=== PATIENT | female | born 1960 | race American Indian/Alaskan Native ===

== ENCOUNTER 2017-08-29 10:59 | Outpatient (CLI) | payer OTHER ==
[2017-08-29 11:35] LABS: Blood Urea Nitrogen 16 mg/dL (7-17)
[2017-08-29] MEDS ORDERED: NACL ONE (13:06)
--- NOTE | 2017-08-29 14:58 | Cat Scan Report ---
FINAL REPORT EXAM: CT ABDOMEN PELVIS W CON HISTORY: DIVERTICULITIS,LLQ PAIN,MELENA TECHNIQUE: CT examination of the ABDOMEN after IV contrast CT examination of the PELVIS after IV contrast PRIORS: None. FINDINGS: Nonspecific slight bronchiectasis bilateral lower lobe bases. Nonspecific diffusely decreased density of liver parenchyma may reflect fatty infiltration. No visualized focal liver lesion. There is slight focal fatty sparing adjacent to the gallbladder fossa. Normal-appearing gallbladder, adrenals, and pancreas. Intact normal caliber abdominal aorta with moderate calcified atherosclerotic plaque. Normal caliber IVC. Normal-appearing kidneys and ureters. A smoothly marginated hypodense anterior splenic subcapsular 7 mm lesion is nonspecific and may reflect a cyst or hemangioma. 3.4 cm fat containing umbilical hernia. No retroperitoneal adenopathy. No mesenteric mass. Normal-appearing stomach and duodenum. No small bowel distention in the abdomen and pelvis. No pelvic free fluid. Normal-appearing decompressed urinary bladder. Normal uterus and adnexa. No focal rectal abnormality. No gross ascites or free air. Normal-appearing cecum and terminal ileum. Appendix not visible. Surgical clips at the cecal tip may reflect prior appendectomy. Prominent stool from cecum to rectum suggestive of constipation without colonic distention. Slight descending and moderate sigmoid diverticulosis without CT evidence of definite acute inflammation. IMPRESSION: Slight descending and moderate sigmoid diverticulosis without CT evidence of definite acute inflammation Prominent stool from cecum to rectum suggestive of constipation 3.4 cm fat containing umbilical hernia 7 mm nodule in spleen may be cyst or hemangioma Hepatic steatosis Slight bronchiectasis in both lower lobe bases
== END 2017-08-29 11:00 | disposition home or self-care (01) ==
LOC: CT 10:59
PROVIDERS: ATTEND Internal Medicine Gastroenterology
DX: K57.92 Diverticulitis of intestine, part unspecified, without perforation or abscess without bleeding (principal); K57.30 Diverticulosis of large intestine without perforation or abscess without bleeding; K76.0 Fatty (change of) liver, not elsewhere classified; K42.9 Umbilical hernia without obstruction or gangrene; J47.9 Bronchiectasis, uncomplicated; D73.89 Other diseases of spleen; K92.1 Melena; Z90.89 Acquired absence of other organs
CPT/HCPCS: 36415; 74177; 82565; 84520; Q9967